=== PATIENT | female | born 1975 | race African-American/Black ===

== ENCOUNTER 2019-07-27 18:58 | Emergency (ER) | payer MEDICAID, OTHER ==
[2019-07-27] MEDS ORDERED: Ketorolac Tromethamine 60 MG/2 ML VIAL ONE (19:27)
[2019-07-27] MEDS ORDERED: Ibuprofen 200 MG TAB ONE (19:37)
--- NOTE | 2019-07-27 19:43 | RAD ---
RIGHT ANKLE TWO VIEW: 07/27/19 HISTORY: Injury. COMPARISON: None. There is a distal fibular fracture extending above the syndesmotic membrane. Mild lateral talar devan ft 1 to 2 mm. Extensive lateral malleolar soft tissue swelling. IMPRESSION: There appears to be at least a component of talocalcaneal and possibly even calcaneonavicular coaliti on. IMPRESSION: Distal fibular fracture extending above the syndesmotic membrane with 1 to 2 mm lateral talar shift. POS: HOME
--- NOTE | 2019-07-27 20:03 | RAD ---
XR Knee Rt 4 View STANDARD: 07/27/2019 7:44 PM CLINICAL INDICATION: Right knee pain after fall COMPARISON: None. FINDINGS: Bones: No acute fracture is demonstrated. Small bone island is seen within the distal femur measurin g 5.5 mm. Joints: No joint capsular distention.. Soft Tissue: No acute abnormality.. IMPRESSION: No acute osseous abnormality..
[2019-07-27] MEDS ORDERED: Acetaminophen/Codeine 30-300mg Tablet ONE (20:12)
== END 2019-07-27 20:29 | disposition home or self-care (01) ==
LOC: ERS 18:58
DX: S82.831A Other fracture of upper and lower end of right fibula, initial encounter for closed fracture (principal); W09.8XXA Fall on or from other playground equipment, initial encounter; Y93.44 Activity, trampolining
CPT/HCPCS: J1885

== ENCOUNTER 2023-03-29 19:16 | Emergency (ER) | payer OTHER, SELFPAY | END 2023-03-29 21:47 | disposition home or self-care (01) | LOC: ERS 19:16 | DX: K60.2 Anal fissure, unspecified (principal); M79.674 Pain in right toe(s) ==

== ENCOUNTER 2023-05-08 09:29 | Emergency (ER) | payer BC ==
[2023-05-08 10:01] LABS: #Monocytes 0.6 thou/uL (0.11-0.59); #Neutrophils 3.1 thou/uL (1.40-6.50); %Basophils 0.3 % (0.0-1.0); %Lymphocytes 48.2 % (21.0-51.0); %Monocytes 8.1 % (0.0-10.0); %Neutrophils 43.1 % (42.0-75.0); Hematocrit 37.3 % (36.0-47.0); Mean Corpuscular HGB CONC 32.2 g/dL (32.0-36.0); Mean Corpuscular Volume 90.1 fl (78.0-98.0); Mean Platelet Volume 10.4 fL (7.4-10.4); Platelet Count 253 10x3/uL (130-400); RBC Distribution Width 13.1 % (11.5-14.5); Red Blood Cell (RBC) Count 4.14 mill/uL (4.20-5.40); White Blood Cell (WBC) Count 7.1 10x3/uL (4.8-10.8)
[2023-05-08 10:13] LABS: PTT 24.7 sec (22.9-36.1); Prothrombin Time 13.9 sec (12.0-14.7)
[2023-05-08 10:27] LABS: ALT (SGPT) 18 U/L (8-55); AST (SGOT) 22 U/L (5-34); Albumin 4.5 g/dL (3.5-5.0); Alkaline Phosphatase 68 U/L (40-110); Anion Gap 15 mmol/L (10-20); BUN (Urea Nitrogen) 12 mg/dL (7.0-18.7); Bilirubin, Total 0.8 mg/dL (0.2-1.2); Calc. Creatinine Clearance 0 mL/min (70-130); Calcium 9.5 mg/dL (7.8-10.44); Carbon Dioxide 20 mmol/L (22-29); Chloride 100 mmol/L (98-107); Estimated GFR 97; Globulin 5.1 g/dL (2.4-3.5); Glucose 91 mg/dL (70-105); Potassium 3.9 mmol/L (3.5-5.1); Protein, Total 9.6 g/dL (6.0-8.3); Sodium 131 mmol/L (136-145)
[2023-05-08 11:08] LABS: BHCG - Serum Negative (NEGATIVE); Pregs Control Background? CLEAR/WHITE (CLR/WHITE); Pregs Control Bar Appear? YES (CONTROL BAR)
[2023-05-08] MEDS ORDERED: Acetaminophen 500 MG TAB ONE (12:04)
[2023-05-08] MEDS ORDERED: Ketorolac Tromethamine 30 MG/ML VIAL ONE (12:04)
[2023-05-08 12:36] LABS: Bacteria/HPF None Seen HPF (None Seen); Bilirubin Negative (Negative); Blood, Urine Negative (Negative); CAUTI Indications for Culture Fever or rigors; Clarity Turbid (Clear); Glucose, Urine (Dipstick) Normal (Negative); Ketone, Urine 20 mg/dL (Negative); Leukocyte 25 Leu/uL (Negative); Nitrite Negative (Negative); Protein, Urine (Dipstick) 30 mg/dL (Neg-Trace); RBC/HPF 0-3 HPF (0-3); Specific Gravity, Urine 1.028 (1.002-1.036); Urobilinogen Normal mg/dL (Less than 2)
[2023-05-08 12:42] LABS: Urine Culture Reflex No No
[2023-05-08 13:05] LABS: SARS-CoV-2 NAA Rapid Test Not Detected (NotDetected)
[2023-05-08] MEDS ORDERED: diphenhydrAMINE 50 MG/ML VIAL ONE (15:03)
[2023-05-08] MEDS ORDERED: Metoclopramide HCl 10 MG/2 ML VIAL ONE (15:03)
== END 2023-05-08 16:58 | disposition home or self-care (01) ==
LOC: ERS 09:29
DX: B34.9 Viral infection, unspecified (principal); R50.9 Fever, unspecified; R51.9 Headache, unspecified; Z20.822 Contact with and (suspected) exposure to COVID-19
CPT/HCPCS: 36415; 70450; 80053; 81001; 83605; 84703; 85025; 85610; 85730; 87040; 87077; 87086; 87186; 94760; 96361; 96365; 96375; J1200; J1885; J2765

== ENCOUNTER 2023-05-11 21:52 | Inpatient (IN) | payer BC ==
[2023-05-11] MEDS ORDERED: Acetaminophen 500 MG TAB ONE (22:07)
[2023-05-11 22:32] LABS: #Monocytes 0.6 thou/uL (0.11-0.59); #Neutrophils 3.5 thou/uL (1.40-6.50); %Basophils 0.3 % (0.0-1.0); %Eosinophils 0.1 % (0.0-10.0); %Lymphocytes 41.5 % (21.0-51.0); %Monocytes 8.7 % (0.0-10.0); %Neutrophils 49.3 % (42.0-75.0); Hematocrit 36.2 % (36.0-47.0); Hemoglobin 11.8 g/dL (12.0-16.0); Mean Corpuscular HGB CONC 32.6 g/dL (32.0-36.0); Mean Corpuscular Hemoglobin 28.6 pg (27.0-31.0); Mean Corpuscular Volume 87.7 fl (78.0-98.0); Mean Platelet Volume 10.6 fL (7.4-10.4); Platelet Count 271 10x3/uL (130-400); RBC Distribution Width 12.9 % (11.5-14.5); Red Blood Cell (RBC) Count 4.13 mill/uL (4.20-5.40); White Blood Cell (WBC) Count 7.1 10x3/uL (4.8-10.8)
[2023-05-11 22:55] LABS: ALT (SGPT) 18 U/L (8-55); AST (SGOT) 19 U/L (5-34); Albumin 4.6 g/dL (3.5-5.0); Alkaline Phosphatase 61 U/L (40-110); Anion Gap 14 mmol/L (10-20); BUN (Urea Nitrogen) 11 mg/dL (7.0-18.7); Bilirubin, Total 0.7 mg/dL (0.2-1.2); Calc. Creatinine Clearance 0 mL/min (70-130); Calcium 9.4 mg/dL (7.8-10.44); Carbon Dioxide 20 mmol/L (22-29); Chloride 97 mmol/L (98-107); Estimated GFR 84; Globulin 4.7 g/dL (2.4-3.5); Glucose 104 mg/dL (70-105); Lipase 39 U/L (8-78); Potassium 3.5 mmol/L (3.5-5.1); Protein, Total 9.3 g/dL (6.0-8.3); Sodium 127 mmol/L (136-145)
[2023-05-11 23:10] LABS: SARS-CoV-2 NAA Rapid Test Not Detected (NotDetected)
[2023-05-12] MEDS ORDERED: Cefepime 2 GM VIAL ONE (00:10)
[2023-05-12] MEDS ORDERED: Sodium Chloride 0.9% 0 ML ONE (00:11)
[2023-05-12 01:02] LABS: Bacteria/HPF None Seen HPF (None Seen); Bilirubin Negative (Negative); Blood, Urine Negative (Negative); CAUTI Indications for Culture Fever or rigors; Clarity Clear (Clear); Glucose, Urine (Dipstick) Normal (Negative); Ketone, Urine 10 mg/dL (Negative); Leukocyte Negative Leu/uL (Negative); Nitrite Negative (Negative); Protein, Urine (Dipstick) Negative (Neg-Trace); RBC/HPF None Seen HPF (0-3); Specific Gravity, Urine 1.009 (1.002-1.036); Squamous Epithelial 0-3 HPF (0-3); Urobilinogen Normal mg/dL (Less than 2); WBC/HPF 0-3 HPF (0-3); pH, Urine 5.5 (5.0-9.0)
[2023-05-12 01:04] LABS: Urine Culture Reflex No No
[2023-05-12] MEDS ORDERED: Bupivacaine 0.25% 10 ML VIAL ONE (02:41)
[2023-05-12] MEDS ORDERED: Vancomycin 1 GM/200 ML (FROZEN) BAG ONE (03:12)
[2023-05-12 03:33] LABS: CSF Source CSF; Clarity Clear (Clear); Tube # 1; Tube # 4
[2023-05-12 03:34] LABS: Clarity Clear (Clear)
[2023-05-12 03:43] LABS: CSF, Glucose 28 mg/dl (40-70)
[2023-05-12 03:44] LABS: Color Of CSF Supernatant COLORLESS (Colorless); Unspun CSF Color COLORLESS (Colorless)
[2023-05-12 03:45] LABS: Tube # 2
[2023-05-12 04:16] LABS: Cell Count Non Hematic 2 %; Lymphocytes 95 %; Segmented Neutrophils 3 %
[2023-05-12 04:19] LABS: Cell Count Non Hematic 1 %; Lymphocytes 94 %; Segmented Neutrophils 5 %
[2023-05-12 04:25] LABS: CSF, Protein 459 mg/dL (15-40)
[2023-05-12] MEDS ORDERED: Ibuprofen 600 MG TAB PO PRN (05:32)
[2023-05-12 06:55] LABS: Creatinine, Urine 51.97 mg/dL (47-110)
[2023-05-12 08:02] LABS: Anion Gap 12 mmol/L (10-20); BUN (Urea Nitrogen) 8 mg/dL (7.0-18.7); Calc. Creatinine Clearance 0 mL/min (70-130); Carbon Dioxide 21 mmol/L (22-29); Chloride 105 mmol/L (98-107); Estimated GFR 94; Glucose 87 mg/dL (70-105); Potassium 3.7 mmol/L (3.5-5.1); Sodium 133 mmol/L (136-145)
[2023-05-12] MEDS ORDERED: Vancomycin HCl 750 MG in Sodium Chloride 0.9% 250 ML 250 ML IVPB SCH ×2 (09:15→18:00)
[2023-05-12 09:48] LABS: HIV (1/2) Antibody/Antigen Reflxed Confirmation (NonReactive)
[2023-05-12] MEDS: Famotidine 20 MG TAB PO SCH ×2 (10:30→21:43)
[2023-05-12] MEDS: Acetaminophen 325 MG TAB PO PRN ×2 (10:55→17:50)
[2023-05-12] MEDS ORDERED: Vancomycin 2 GM in Sodium Chloride 0.9% 500 ML IVPB SCH (12:00)
[2023-05-12] MEDS ORDERED: cefTRIAXone\\ROCEPHIN 2 GM in Sodium Chloride 0.9% 100 ML IVPB SCH (12:00)
[2023-05-12 12:20] LABS: Anion Gap 12 mmol/L (10-20); BUN (Urea Nitrogen) 7 mg/dL (7.0-18.7); Calc. Creatinine Clearance 105 mL/min (70-130); Calcium 8.9 mg/dL (7.8-10.44); Carbon Dioxide 19 mmol/L (22-29); Chloride 104 mmol/L (98-107); Estimated GFR 97; Glucose 86 mg/dL (70-105); Potassium 3.6 mmol/L (3.5-5.1); Sodium 131 mmol/L (136-145)
[2023-05-12 14:17] LABS: Syphilis Antibody Index 11.82 S/CO (<1.00 Non-Reactive)
[2023-05-12 14:43] LABS: Reference Lab Name LABCORP
[2023-05-12 14:47] LABS: Reference Lab Name LABCORP
[2023-05-12 15:59] LABS: Syphilis Antibody INDETERMINATE (Nonreactive)
[2023-05-12 17:23] LABS: HBSAg Index 0.18 S/CO (0-0.99); Hep B Surf Ag Non-Reactive S/CO (NonReactive); Hep C IgG Ab Non-Reactive S/CO (NonReactive); Hep C Index 0.19 S/CO (0-0.79)
[2023-05-12 17:24] LABS: HBSAB Concentration 23.85 mIU/mL; Hep B Surf AB Reactive (NonReactive)
[2023-05-12] MEDS: Ketorolac Tromethamine 30 MG/ML VIAL IVP PRN (17:48)
[2023-05-12] MEDS ORDERED: Vancomycin 1 GM in Premix 1 BAG IVPB SCH (22:00)
[2023-05-13] MEDS: Ketorolac Tromethamine 30 MG/ML VIAL IVP PRN ×2 (02:18→16:19)
[2023-05-13] MEDS: Acetaminophen 325 MG TAB PO PRN ×3 (04:43→16:21)
[2023-05-13 05:59] LABS: #Monocytes 0.7 thou/uL (0.11-0.59); #Neutrophils 2.3 thou/uL (1.40-6.50); %Basophils 0.3 % (0.0-1.0); %Eosinophils 0.2 % (0.0-10.0); %Lymphocytes 51.6 % (21.0-51.0); %Monocytes 10.9 % (0.0-10.0); %Neutrophils 36.8 % (42.0-75.0); Mean Corpuscular HGB CONC 32.3 g/dL (32.0-36.0); Mean Corpuscular Hemoglobin 29.2 pg (27.0-31.0); Mean Corpuscular Volume 90.4 fl (78.0-98.0); Mean Platelet Volume 10.4 fL (7.4-10.4); Platelet Count 219 10x3/uL (130-400); RBC Distribution Width 13.2 % (11.5-14.5); Red Blood Cell (RBC) Count 3.43 mill/uL (4.20-5.40); White Blood Cell (WBC) Count 6.1 10x3/uL (4.8-10.8)
[2023-05-13 06:35] LABS: ALT (SGPT) 13 U/L (8-55); AST (SGOT) 15 U/L (5-34); Albumin 3.8 g/dL (3.5-5.0); Alkaline Phosphatase 49 U/L (40-110); Anion Gap 11 mmol/L (10-20); BUN (Urea Nitrogen) 8 mg/dL (7.0-18.7); Bilirubin, Total 0.6 mg/dL (0.2-1.2); Calc. Creatinine Clearance 103 mL/min (70-130); Calcium 8.3 mg/dL (7.8-10.44); Carbon Dioxide 20 mmol/L (22-29); Chloride 107 mmol/L (98-107); Estimated GFR 96; Globulin 3.7 g/dL (2.4-3.5); Glucose 92 mg/dL (70-105); Potassium 3.7 mmol/L (3.5-5.1); Protein, Total 7.5 g/dL (6.0-8.3); Sodium 134 mmol/L (136-145)
[2023-05-13] MEDS: Famotidine 20 MG TAB PO SCH ×2 (09:05→20:32)
[2023-05-13 13:57] LABS: Bacteria/HPF None Seen HPF (None Seen); Bilirubin Negative (Negative); Blood, Urine Negative (Negative); CAUTI Indications for Culture Fever or rigors; Clarity Clear (Clear); Glucose, Urine (Dipstick) Normal (Negative); Ketone, Urine Negative (Negative); Leukocyte Negative Leu/uL (Negative); Nitrite Negative (Negative); Protein, Urine (Dipstick) 10 mg/dL (Neg-Trace); RBC/HPF 0-3 HPF (0-3); Specific Gravity, Urine 1.015 (1.002-1.036); Squamous Epithelial 0-3 HPF (0-3); Urobilinogen Normal mg/dL (Less than 2); WBC/HPF 0-3 HPF (0-3)
[2023-05-13 13:58] LABS: Urine Culture Reflex No No
[2023-05-13 15:37] LABS: HIV 1 Antibody Multi-Spot Reactive (Non Reactive); HIV 2 Antibody Multi-Spot Non Reactive (Non Reactive); HIV Multi-spot Interp HIV-1 Positive (.)
[2023-05-14] MEDS: Ketorolac Tromethamine 30 MG/ML VIAL IVP PRN ×2 (00:45→16:39)
[2023-05-14 05:31] LABS: #Monocytes 0.7 thou/uL (0.11-0.59); #Neutrophils 2.1 thou/uL (1.40-6.50); %Basophils 0.3 % (0.0-1.0); %Eosinophils 0.3 % (0.0-10.0); %Lymphocytes 53.4 % (21.0-51.0); %Monocytes 11.6 % (0.0-10.0); %Neutrophils 34.2 % (42.0-75.0); Hematocrit 31.1 % (36.0-47.0); Hemoglobin 10.1 g/dL (12.0-16.0); Mean Corpuscular HGB CONC 32.5 g/dL (32.0-36.0); Mean Corpuscular Hemoglobin 29.4 pg (27.0-31.0); Mean Corpuscular Volume 90.7 fl (78.0-98.0); Mean Platelet Volume 10.3 fL (7.4-10.4); Platelet Count 212 10x3/uL (130-400); RBC Distribution Width 13.2 % (11.5-14.5); Red Blood Cell (RBC) Count 3.43 mill/uL (4.20-5.40); White Blood Cell (WBC) Count 6.1 10x3/uL (4.8-10.8)
[2023-05-14 05:58] LABS: ALT (SGPT) 10 U/L (8-55); AST (SGOT) 16 U/L (5-34); Albumin 3.9 g/dL (3.5-5.0); Alkaline Phosphatase 43 U/L (40-110); Anion Gap 11 mmol/L (10-20); BUN (Urea Nitrogen) 8 mg/dL (7.0-18.7); Bilirubin, Total 0.6 mg/dL (0.2-1.2); CRP (Inflammatory) Less than 0.50 mg/dL (= or < 0.5); Calc. Creatinine Clearance 96 mL/min (70-130); Calcium 8.8 mg/dL (7.8-10.44); Carbon Dioxide 22 mmol/L (22-29); Chloride 104 mmol/L (98-107); Estimated GFR 87; Globulin 3.6 g/dL (2.4-3.5); Glucose 88 mg/dL (70-105); Potassium 3.6 mmol/L (3.5-5.1); Protein, Total 7.5 g/dL (6.0-8.3); Sodium 133 mmol/L (136-145)
[2023-05-14] MEDS: Acetaminophen 325 MG TAB PO PRN (06:57)
[2023-05-14] MEDS: Famotidine 20 MG TAB PO SCH ×2 (09:03→21:08)
[2023-05-14] MEDS ORDERED: Magnevist 469MG/ML 20 ML VIAL ONE (11:00)
[2023-05-14] MEDS: Penicillin G Potassium 4 MILL.UNITS in Sodium Chloride 0.9% 100 ML IVPB SCH ×2 (21:03→21:07)
[2023-05-14] MEDS: Raltegravir Potassium 400 MG TAB PO SCH (21:08)
[2023-05-14 23:11] LABS: Chlam.trachomatis by PCR,Urine Not Detected (NotDetected); GC N.gonorrhoeae PCR,UrineVOID Not Detected (NotDetected)
[2023-05-15] MEDS: Penicillin G Potassium 4 MILL.UNITS in Sodium Chloride 0.9% 100 ML IVPB SCH ×6 (02:00→21:11)
[2023-05-15 05:57] LABS: #Eosinphils 0.1 thou/uL (0.0-0.7); #Monocytes 0.7 thou/uL (0.11-0.59); #Neutrophils 3.1 thou/uL (1.40-6.50); %Basophils 0.2 % (0.0-1.0); %Eosinophils 0.8 % (0.0-10.0); %Lymphocytes 39.1 % (21.0-51.0); %Monocytes 11.7 % (0.0-10.0); Hematocrit 29.7 % (36.0-47.0); Hemoglobin 9.6 g/dL (12.0-16.0); Mean Corpuscular HGB CONC 32.3 g/dL (32.0-36.0); Mean Corpuscular Hemoglobin 29.2 pg (27.0-31.0); Mean Corpuscular Volume 90.3 fl (78.0-98.0); Mean Platelet Volume 10.6 fL (7.4-10.4); Platelet Count 208 10x3/uL (130-400); RBC Distribution Width 13.2 % (11.5-14.5); Red Blood Cell (RBC) Count 3.29 mill/uL (4.20-5.40); White Blood Cell (WBC) Count 6.4 10x3/uL (4.8-10.8)
[2023-05-15] MEDS: Acetaminophen 325 MG TAB PO PRN ×2 (09:20→17:20)
[2023-05-15] MEDS: Famotidine 20 MG TAB PO SCH ×2 (09:20→21:12)
[2023-05-15] MEDS: Emtricitabine/Tenofovir 200-300 MG TAB PO SCH (09:20)
[2023-05-15] MEDS: Raltegravir Potassium 400 MG TAB PO SCH ×2 (09:36→21:12)
[2023-05-15 11:55] LABS: Albumin 3.5 g/dL (3.5-5.0)
[2023-05-15 11:56] LABS: Chloride 105 mmol/L (98-107); Potassium 3.6 mmol/L (3.5-5.1); Sodium 132 mmol/L (136-145)
[2023-05-15 11:57] LABS: Calcium 8.6 mg/dL (7.8-10.44); Glucose 97 mg/dL (70-105)
[2023-05-15 11:58] LABS: Globulin 3.6 g/dL (2.4-3.5); Protein, Total 7.1 g/dL (6.0-8.3)
[2023-05-15 11:59] LABS: Anion Gap 13 mmol/L (10-20); Bilirubin, Total 0.5 mg/dL (0.2-1.2); Carbon Dioxide 18 mmol/L (22-29)
[2023-05-15 12:00] LABS: Alkaline Phosphatase 48 U/L (40-110)
[2023-05-15 12:02] LABS: BUN (Urea Nitrogen) 18 mg/dL (7.0-18.7)
[2023-05-15 12:03] LABS: ALT (SGPT) 11 U/L (8-55); AST (SGOT) 19 U/L (5-34)
[2023-05-15 12:10] LABS: Calc. Creatinine Clearance 53 mL/min (70-130); Estimated GFR 43
[2023-05-15 14:37] LABS: %CD4 (Helper/Inducer) 11.1 % (30.8-58.5); Absolute CD4 366 /uL (359-1519); Lymphocytes/Gated Cell Count 3.3 x10E3/uL (0.7-3.1); Total Lymphocyte 53 % (Not Estab.); WBC Total Count 6.2 x10E3/uL (3.4-10.8)
[2023-05-15] MEDS: Ondansetron ODT 4 MG TAB PO PRN (17:25)
[2023-05-15] MEDS: Lactated Ringer's 250 ML IV SCH ×7 (17:44→23:48)
[2023-05-16] MEDS: Lactated Ringer's 250 ML IV SCH ×2 (00:54→00:55)
[2023-05-16] MEDS: Penicillin G Potassium 4 MILL.UNITS in Sodium Chloride 0.9% 100 ML IVPB SCH ×6 (01:25→20:52)
[2023-05-16 05:09] LABS: #Eosinphils 0.1 thou/uL (0.0-0.7); #Monocytes 0.5 thou/uL (0.11-0.59); #Neutrophils 2.8 thou/uL (1.40-6.50); %Basophils 0.2 % (0.0-1.0); %Lymphocytes 36.4 % (21.0-51.0); %Monocytes 8.8 % (0.0-10.0); %Neutrophils 53.4 % (42.0-75.0); Hematocrit 29.3 % (36.0-47.0); Hemoglobin 9.4 g/dL (12.0-16.0); Mean Corpuscular HGB CONC 32.1 g/dL (32.0-36.0); Mean Corpuscular Hemoglobin 28.8 pg (27.0-31.0); Mean Corpuscular Volume 89.9 fl (78.0-98.0); Mean Platelet Volume 10.5 fL (7.4-10.4); Platelet Count 225 10x3/uL (130-400); RBC Distribution Width 13.2 % (11.5-14.5); Red Blood Cell (RBC) Count 3.26 mill/uL (4.20-5.40); White Blood Cell (WBC) Count 5.3 10x3/uL (4.8-10.8)
[2023-05-16 05:42] LABS: ALT (SGPT) 9 U/L (8-55); AST (SGOT) 21 U/L (5-34); Albumin 3.7 g/dL (3.5-5.0); Alkaline Phosphatase 46 U/L (40-110); Anion Gap 13 mmol/L (10-20); BUN (Urea Nitrogen) 10 mg/dL (7.0-18.7); Bilirubin, Total 0.4 mg/dL (0.2-1.2); Calc. Creatinine Clearance 69 mL/min (70-130); Calcium 8.9 mg/dL (7.8-10.44); Carbon Dioxide 19 mmol/L (22-29); Chloride 108 mmol/L (98-107); Estimated GFR 59; Globulin 3.5 g/dL (2.4-3.5); Glucose 96 mg/dL (70-105); Potassium 3.7 mmol/L (3.5-5.1); Protein, Total 7.2 g/dL (6.0-8.3); Sodium 136 mmol/L (136-145)
[2023-05-16] MEDS: Lactated Ringer's 1,000 ML IV SCH ×2 (09:24→20:52)
[2023-05-16] MEDS: Raltegravir Potassium 400 MG TAB PO SCH ×2 (09:24→20:53)
[2023-05-16] MEDS: Famotidine 20 MG TAB PO SCH ×2 (09:24→20:52)
[2023-05-16] MEDS: Emtricitabine/Tenofovir 200-300 MG TAB PO SCH (09:24)
[2023-05-16 13:14] LABS: QuantiFERON-TB Gold Plus Negative (Negative)
[2023-05-16] MEDS: Ondansetron ODT 4 MG TAB PO PRN ×2 (14:46→21:08)
[2023-05-16 15:14] LABS: HSV 1 - DNA Negative (Negative); HSV 2 - DNA Negative (Negative)
[2023-05-16] MEDS: Acetaminophen 325 MG TAB PO PRN ×2 (16:04→20:53)
[2023-05-16 17:15] LABS: LOG10 HIV-1 RNA 5.137 (.)
[2023-05-17] MEDS: Penicillin G Potassium 4 MILL.UNITS in Sodium Chloride 0.9% 100 ML IVPB SCH ×6 (02:10→20:07)
[2023-05-17] MEDS: Lactated Ringer's 1,000 ML IV SCH ×2 (02:18→16:02)
[2023-05-17 05:05] LABS: #Eosinphils 0.1 thou/uL (0.0-0.7); #Monocytes 0.3 thou/uL (0.11-0.59); %Basophils 0.4 % (0.0-1.0); %Eosinophils 2.1 % (0.0-10.0); %Lymphocytes 48.7 % (21.0-51.0); %Monocytes 6.8 % (0.0-10.0); %Neutrophils 41.8 % (42.0-75.0); Hemoglobin 9.3 g/dL (12.0-16.0); Mean Corpuscular HGB CONC 32.1 g/dL (32.0-36.0); Mean Corpuscular Volume 90.3 fl (78.0-98.0); Platelet Count 242 10x3/uL (130-400); RBC Distribution Width 13.4 % (11.5-14.5); Red Blood Cell (RBC) Count 3.21 mill/uL (4.20-5.40); White Blood Cell (WBC) Count 4.7 10x3/uL (4.8-10.8)
[2023-05-17 05:28] LABS: ALT (SGPT) 13 U/L (8-55); AST (SGOT) 17 U/L (5-34); Albumin 3.5 g/dL (3.5-5.0); Alkaline Phosphatase 47 U/L (40-110); Anion Gap 11 mmol/L (10-20); BUN (Urea Nitrogen) 6 mg/dL (7.0-18.7); Bilirubin, Total 0.3 mg/dL (0.2-1.2); Calc. Creatinine Clearance 92 mL/min (70-130); Carbon Dioxide 21 mmol/L (22-29); Chloride 109 mmol/L (98-107); Estimated GFR 83; Globulin 3.4 g/dL (2.4-3.5); Glucose 95 mg/dL (70-105); Potassium 3.9 mmol/L (3.5-5.1); Protein, Total 6.9 g/dL (6.0-8.3); Sodium 137 mmol/L (136-145)
[2023-05-17] MEDS: Lactated Ringer's 250 ML IV SCH (07:40)
[2023-05-17] MEDS: Raltegravir Potassium 400 MG TAB PO SCH ×2 (08:56→20:07)
[2023-05-17] MEDS: Emtricitabine/Tenofovir 200-300 MG TAB PO SCH (08:56)
[2023-05-17] MEDS: Famotidine 20 MG TAB PO SCH ×2 (08:56→20:06)
[2023-05-17] MEDS: Acetaminophen 325 MG TAB PO PRN ×2 (09:02→20:06)
[2023-05-17 17:39] LABS: CMV DNA-PCR Test Negative (Negative)
[2023-05-18] MEDS: Lactated Ringer's 1,000 ML IV SCH ×3 (00:46→20:36)
[2023-05-18] MEDS: Penicillin G Potassium 4 MILL.UNITS in Sodium Chloride 0.9% 100 ML IVPB SCH ×6 (00:48→20:36)
[2023-05-18 05:41] LABS: #Eosinphils 0.1 thou/uL (0.0-0.7); #Monocytes 0.4 thou/uL (0.11-0.59); #Neutrophils 1.8 thou/uL (1.40-6.50); %Basophils 0.2 % (0.0-1.0); %Eosinophils 1.7 % (0.0-10.0); %Lymphocytes 50.9 % (21.0-51.0); %Monocytes 7.9 % (0.0-10.0); %Neutrophils 38.9 % (42.0-75.0); Hemoglobin 9.7 g/dL (12.0-16.0); Mean Corpuscular HGB CONC 31.3 g/dL (32.0-36.0); Mean Corpuscular Hemoglobin 28.5 pg (27.0-31.0); Mean Corpuscular Volume 91.2 fl (78.0-98.0); Mean Platelet Volume 10.1 fL (7.4-10.4); Platelet Count 273 10x3/uL (130-400); RBC Distribution Width 13.6 % (11.5-14.5); White Blood Cell (WBC) Count 4.7 10x3/uL (4.8-10.8)
[2023-05-18 06:11] LABS: ALT (SGPT) 14 U/L (8-55); AST (SGOT) 20 U/L (5-34); Albumin 3.6 g/dL (3.5-5.0); Alkaline Phosphatase 51 U/L (40-110); Anion Gap 9 mmol/L (10-20); BUN (Urea Nitrogen) 5 mg/dL (7.0-18.7); Bilirubin, Total 0.4 mg/dL (0.2-1.2); Calc. Creatinine Clearance 96 mL/min (70-130); Calcium 9.6 mg/dL (7.8-10.44); Carbon Dioxide 25 mmol/L (22-29); Chloride 106 mmol/L (98-107); Estimated GFR 87; Globulin 3.5 g/dL (2.4-3.5); Glucose 87 mg/dL (70-105); Protein, Total 7.1 g/dL (6.0-8.3); Sodium 136 mmol/L (136-145)
[2023-05-18] MEDS: Emtricitabine/Tenofovir 200-300 MG TAB PO SCH (08:57)
[2023-05-18] MEDS: Famotidine 20 MG TAB PO SCH ×2 (08:57→20:34)
[2023-05-18] MEDS: Raltegravir Potassium 400 MG TAB PO SCH ×2 (08:57→20:34)
[2023-05-18] MEDS: Acetaminophen 325 MG TAB PO PRN (20:34)
[2023-05-19] MEDS: Penicillin G Potassium 4 MILL.UNITS in Sodium Chloride 0.9% 100 ML IVPB SCH ×5 (02:15→18:14)
[2023-05-19] MEDS: Lactated Ringer's 1,000 ML IV SCH ×2 (02:21→14:46)
[2023-05-19 05:15] LABS: #Eosinphils 0.1 thou/uL (0.0-0.7); #Monocytes 0.4 thou/uL (0.11-0.59); #Neutrophils 1.8 thou/uL (1.40-6.50); %Basophils 0.4 % (0.0-1.0); %Eosinophils 1.5 % (0.0-10.0); %Lymphocytes 54.9 % (21.0-51.0); %Monocytes 7.4 % (0.0-10.0); %Neutrophils 35.6 % (42.0-75.0); Hematocrit 31.3 % (36.0-47.0); Hemoglobin 9.9 g/dL (12.0-16.0); Mean Corpuscular HGB CONC 31.6 g/dL (32.0-36.0); Mean Corpuscular Hemoglobin 28.6 pg (27.0-31.0); Mean Corpuscular Volume 90.5 fl (78.0-98.0); Platelet Count 316 10x3/uL (130-400); RBC Distribution Width 13.4 % (11.5-14.5); Red Blood Cell (RBC) Count 3.46 mill/uL (4.20-5.40); White Blood Cell (WBC) Count 5.2 10x3/uL (4.8-10.8)
[2023-05-19 05:46] LABS: ALT (SGPT) 26 U/L (8-55); AST (SGOT) 36 U/L (5-34); Albumin 3.4 g/dL (3.5-5.0); Alkaline Phosphatase 65 U/L (40-110); Anion Gap 12 mmol/L (10-20); BUN (Urea Nitrogen) 5 mg/dL (7.0-18.7); Bilirubin, Total 0.5 mg/dL (0.2-1.2); Calc. Creatinine Clearance 97 mL/min (70-130); Calcium 9.2 mg/dL (7.8-10.44); Carbon Dioxide 23 mmol/L (22-29); Chloride 104 mmol/L (98-107); Estimated GFR 89; Globulin 3.9 g/dL (2.4-3.5); Glucose 96 mg/dL (70-105); Potassium 4.2 mmol/L (3.5-5.1); Protein, Total 7.3 g/dL (6.0-8.3); Sodium 135 mmol/L (136-145)
[2023-05-19] MEDS: Famotidine 20 MG TAB PO SCH (09:57)
[2023-05-19] MEDS: Raltegravir Potassium 400 MG TAB PO SCH (09:57)
[2023-05-19] MEDS: Emtricitabine/Tenofovir 200-300 MG TAB PO SCH (09:57)
[2023-05-19] MEDS ORDERED: Ondansetron PF 4 MG/2 ML Vial IVP PRN (11:14)
[2023-05-19] MEDS ORDERED: Aquaphor 10 GM TUBE TOP PRN (11:21)
[2023-05-19] MEDS ORDERED: Loratadine 10 MG TAB PO SCH (12:00)
[2023-05-19] MEDS ORDERED: hydrOXYzine 25 MG TAB PO PRN (14:26)
[2023-05-19] MEDS ORDERED: Menthol/Zinc Oxide 283 GM BOT TOP PRN (14:27)
[2023-05-19 15:48] VITALS: BP 123/86; TEMP 97.8
[2023-05-20] MEDS ORDERED: Loratadine 10 MG TAB PO SCH (09:00)
== END 2023-05-19 18:30 | disposition home or self-care (01) | DRG 98 ==
LOC: ERS 21:52 → ERHOLD 05-12 05:17 → SURG A 05-12 07:47
PROVIDERS: ADMIT Family Medicine; ATTEND Family Medicine
DX: G03.0 Nonpyogenic meningitis (principal); E87.1 Hypo-osmolality and hyponatremia; N17.9 Acute kidney failure, unspecified; D64.9 Anemia, unspecified; Z21 Asymptomatic human immunodeficiency virus [HIV] infection status; I45.81 Long QT syndrome; Z20.822 Contact with and (suspected) exposure to COVID-19; Z88.8 Allergy status to other drugs, medicaments and biological substances; Z98.890 Other specified postprocedural states; Z82.49 Family history of ischemic heart disease and other diseases of the circulatory system; Z83.3 Family history of diabetes mellitus; Z98.51 Tubal ligation status
CPT/HCPCS: 36415; 62270; 70450; 70553; 71045; 80048; 80053; 80202; 81001; 82570; 82945; 83605; 83690; 83930; 83935; 84157; 84300; 85025; 85060; 86140; 86361; 86480; 86592; 86593; 86701; 86702; 86706; 86780; 86803; 87040; 87070; 87086; 87205; 87340; 87385; 87389; 87491; 87497; 87529; 87536; 87556; 87591; 87798; 87899; 88184; 89051; 93005; 93010; 96361; 96365; 96367; A9579; J0133; J0692; J0696; J1650; J1885; J2405; J2540; J3370; J3370-JW; J3490; J7050; J7120; Q0162; S0020

== ENCOUNTER 2023-05-20 18:40 | Emergency (ER) | payer BC ==
[2023-05-20] MEDS ORDERED: Bicillin LA 2.4 MILL.UNITS/4 ML SYRINGE ONE (19:14)
== END 2023-05-20 19:50 | disposition home or self-care (01) ==
LOC: ERS 18:40
DX: G03.9 Meningitis, unspecified (principal)
CPT/HCPCS: 96372; 99282; J0561

== ENCOUNTER → 2023-05-26 | Day surgery (SDC) | payer BC ==
[~2023-05-26] MED LIST: Iopamidol 300 61% 100 ML VIAL FS ONE
== END ==
LOC: SPEC 05-25 08:55
PROVIDERS: ATTEND Student in an Organized Health Care Education/Training Program
PROC: 05HY33Z Insertion of Infusion Device into Upper Vein, Percutaneous Approach (ICD-10-PCS; principal; 2023-05-26)
DX: A52.3 Neurosyphilis, unspecified (principal); Z79.2 Long term (current) use of antibiotics
CPT/HCPCS: 36569; C1751; Q9967

== ENCOUNTER 2023-05-31 10:05 | Emergency (ER) | payer BC ==
[2023-05-31] MEDS ORDERED: Iopamidol-370 76% 500 ML MDV (1 ML CHARGE) ONE (10:44)
[2023-05-31 11:37] LABS: #Eosinphils 0.1 thou/uL (0.0-0.7); #Monocytes 0.5 thou/uL (0.11-0.59); %Basophils 0.2 % (0.0-1.0); %Eosinophils 1.2 % (0.0-10.0); %Lymphocytes 40.4 % (21.0-51.0); Hematocrit 31.5 % (36.0-47.0); Mean Corpuscular HGB CONC 31.7 g/dL (32.0-36.0); Mean Corpuscular Volume 94.6 fl (78.0-98.0); Platelet Count 272 10x3/uL (130-400); RBC Distribution Width 14.6 % (11.5-14.5); Red Blood Cell (RBC) Count 3.33 mill/uL (4.20-5.40)
[2023-05-31 11:55] LABS: ALT (SGPT) 12 U/L (8-55); AST (SGOT) 12 U/L (5-34); Albumin 4.1 g/dL (3.5-5.0); Alkaline Phosphatase 63 U/L (40-110); Anion Gap 13 mmol/L (10-20); BUN (Urea Nitrogen) 6 mg/dL (7.0-18.7); Bilirubin, Total 0.6 mg/dL (0.2-1.2); Calc. Creatinine Clearance 0 mL/min (70-130); Calcium 9.6 mg/dL (7.8-10.44); Carbon Dioxide 28 mmol/L (22-29); Chloride 101 mmol/L (98-107); Estimated GFR 90; Glucose 76 mg/dL (70-105); Potassium 3.1 mmol/L (3.5-5.1); Protein, Total 8.1 g/dL (6.0-8.3); Sodium 139 mmol/L (136-145)
== END 2023-05-31 14:35 | disposition home or self-care (01) ==
LOC: ERS 10:05
DX: I82.602 Acute embolism and thrombosis of unspecified veins of left upper extremity (principal); R07.9 Chest pain, unspecified
CPT/HCPCS: 71045; 71275; 80053; 83605; 85025; 85379; 93005; Q9967